=== PATIENT | male | born 1990 | race Caucasian/White ===

== ENCOUNTER 2016-07-16 01:25 | Emergency (ER) | payer SELFPAY ==
[~2016-07-16] VITALS: Ht 172.7 cm; Wt 100.0 kg
[~2016-07-16 01:25] MED LIST: NAPR500 OR; SULF1TAB47 PO
[2016-07-16 01:26] VITALS: BP 132/87; PULSE 102; RESP 18; TEMP 98.9; O2SAT 99
[2016-07-16] MEDS ORDERED: SODIUM CHLORIDE 0.9% FLUSH 10 ML FLUSH IV FLUSH PRN (02:00)
[2016-07-16] MEDS ORDERED: ZOFR4TAB3 SL (02:18)
[2016-07-16] MEDS ORDERED: LOPE2TAB3 PO (02:18)
--- NOTE | 2016-07-16 02:19 | PD ---
HPI Chief Complaint: Abdominal Pain Time Seen by Provider: 01:54 Travel History International Travel<30 days: No Contact w/Intl Traveler<30days: No Traveled to known affect area: No History of Present Illness HPI Is a well 26 year-old man presents emergent department of nausea vomiting diarrhea starting today. He states he had trouble controlling his bowels. He is a copious watery diarrhea and retching and vomiting. Symptoms started tonight. He's not had previous similar symptoms. No sick contacts. No recent travel. No recent antibiotic exposures. No fevers or chills. No blood in his stool. 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 SKIN: Focused skin assessment warm/dry. HEAD: Atraumatic. Normocephalic. EYES: Pupils equal and round. No scleral icterus. No injection or drainage. ENT: No nasal bleeding or discharge. Mucous membranes pink and moist. NECK: Trachea midline. No JVD. CARDIOVASCULAR: Regular rate and rhythm. No murmur appreciated. RESPIRATORY: No accessory muscle use. Clear to auscultation. Breath sounds equal bilaterally. GASTROINTESTINAL: Abdomen obese and soft. No significant tenderness. MUSCULOSKELETAL: His right leg shorter than his other by couple inches. NEUROLOGICAL: Awake and alert. No obvious cranial nerve deficits. Motor grossly within normal limits. Normal speech. Data Data Last Documented VS Vital Signs Date Time Temp Pulse Resp B/P Pulse Ox O2 Delivery O2 Flow Rate FiO2 07/16/16 01:26 98.9 102 18 132/87 99 Room Air Orders Complete Blood Count With Diff (07/16/16 02:00) Comprehensive Metabolic Panel (07/16/16 02:00) Lipase (07/16/16 02:00) Iv Access Insert/Monitor (07/16/16 02:00) Sodium Chloride 0.9% Flush (Ns Flush) (07/16/16 02:00) Sodium Chlor 0.9% 1000 Ml Inj (Ns 1000 M (07/16/16 02:00) Sodium Chlor 0.9% 1000 Ml Inj (Ns 1000 M (07/16/16 02:00) Loperamide (Imodium) (07/16/16 02:00) Ondansetron Inj (Zofran Inj) (07/16/16 02:00) MDM Medical Decision Making Medical Screen Exam Complete: Yes Emergency Medical Condition: Yes Differential Diagnosis Acute gastroenteritis, colitis, infection, other Narrative Course Medical decision making INITIAL calls a 26-year-old man who presents emergency department with nausea vomiting copious watery diarrhea suggestive of acute gastroenteritis. He looks otherwise well. He had some hand cramping at some point. He may have had similar to that abnormality. CT also was anxious and may have been hyperventilating. Diagnosis Primary Impression: Acute gastroenteritis Additional Instructions: Take Zofran as needed for nausea or vomiting. Use loperamide as needed for diarrhea. Follow-up with her primary doctor in the next 2-4 days. Return to the emergency department for any new or worsening symptoms. Med/Other Pt SpecificInfo: Prescription(s) given Scripts Loperamide 2 Mg Tab2 Mg PO DIRECTED PRN (DIARRHEA) #8 TAB One tablet after each loose stool. Not to exceed 8 tablets per day. Prov:Neftali Desouza MD 07/16/16 Ondansetron Odt (Zofran Odt)4 Mg Tab4 Mg SL Q8HR PRN (Nausea/Vomiting) #15 TAB May substitute non-ODT form. Prov:Neftali Desouza MD 07/16/16 Disposition: 01 DISCHARGE HOME Condition: Stable Neftali Desouza MD Jul 16, 2016 02:19
[2016-07-16] MEDS: SODIUM CHLOR 0.9% 1000 ML INJ 1,000 ML IV ONE ×2 (02:26)
[2016-07-16] MEDS: ONDANSETRON HCL 4 MG/2 ML VIAL IV ONE (02:27)
[2016-07-16 02:36] LABS: AUTOMATED NEUTROPHIL # 13.5 TH/MM3 (1.8-7.7); EOSINOPHIL % 0.3 % (0.0-4.0); HEMATOCRIT 49.5 % (39.0-51.0); HEMO FLAGS DIFF FINAL; LYMPH % 2.8 % (9.0-44.0); LYMPHOCYTE # 0.4 TH/MM3 (1.0-4.8); MEAN CELL VOLUME 86.6 FL (80.0-100.0); MEAN CORPUSCULAR HEMOGLOBIN 30.8 PG (27.0-34.0); MEAN CORPUSCULAR HGB CONC 35.6 % (32.0-36.0); MONO % 5.8 % (0.0-8.0); NEUT % 91.1 % (16.0-70.0); PLATELET COUNT 218 TH/MM3 (150-450); RED BLOOD COUNT 5.71 MIL/MM3 (4.50-5.90); RED CELL DISTRIBUTION WIDTH 12.7 % (11.6-17.2); WHITE BLOOD COUNT 14.8 TH/MM3 (4.0-11.0)
[2016-07-16 02:50] LABS: ANION GAP 8 MEQ/L (5-15); AST (GOT) 21 U/L (15-37); BICARBONATE 26.3 MEQ/L (21.0-32.0); BLOOD UREA NITROGEN 18 MG/DL (7-18); CHLORIDE 104 MEQ/L (98-107); GLOMERULAR FILTRATION RATE 80 ML/MIN (>89); POTASSIUM 3.8 MEQ/L (3.5-5.1); SODIUM (NA) 138 MEQ/L (136-145)
[2016-07-16 02:53] LABS: ALKALINE PHOSPHATASE 63 U/L (45-117); ALT (GPT) 27 U/L (12-78); TOTAL BILIRUBIN ADULT 0.8 MG/DL (0.2-1.0)
[2016-07-16] MEDS: LOPERAMIDE HCL 2 MG CAP PO ONE (02:57)
[2016-07-16 03:25] VITALS: BP 128/84
== END 2016-07-16 03:28 | disposition home or self-care (01) ==
LOC: NEPC 01:25
DX: K52.9 Noninfective gastroenteritis and colitis, unspecified (principal)
CPT/HCPCS: 80053; 83690; 85025; 96374; 99284; J2405; J7030